=== PATIENT | male | born 1960 | race Hispanic/Latino ===

== ENCOUNTER 2024-10-17 21:41 | Emergency (ER) | payer SELFPAY ==
[~2024-10-17] VITALS: Ht 172.7 cm; Wt 90.7 kg
[2024-10-17 22:06] LABS: BASOPHILS # (AUTO) 0.04 K/uL (0.00-0.20); BASOPHILS % (AUTO) 0.7 % (0.0-5.0); EOSINOPHILS # (AUTO) 0.24 K/uL (0.00-0.70); EOSINOPHILS % (AUTO) 4.1 % (0.0-8.0); HEMATOCRIT 39.5 % (42-54); IMMATURE GRANULOCYTE ABSOLUTE 0.01 K/uL (0-1); LYMPHOCYTES # (AUTO) 1.8 K/uL (1.0-4.8); LYMPHOCYTES % (AUTO) 31.1 % (21.0-51.0); MEAN CORPUSCULAR HEMOGLOBIN 24.1 pg (27.0-33.0); MEAN CORPUSCULAR HGB CONC 31.6 g/dL (32.0-36.0); MEAN CORPUSCULAR VOLUME 76.3 fL (79-99); MONOCYTES # (AUTO) 0.5 K/uL (0.1-1.0); MONOCYTES % (AUTO) 9.3 % (3.0-13.0); NEUTROPHILS # (AUTO) 3.2 K/uL (1.8-7.7); NEUTROPHILS % (AUTO) 54.6 % (40.0-77.0); PLATELET COUNT (AUTO) 304 K/uL (130-400); RED BLOOD CELL COUNT(AUTO) 5.18 MIL/uL (4.50-6.20); RED CELL DISTRIBUTION WIDTH 14.6 % (11.0-15.5); WHITE BLOOD COUNT (AUTO) 5.8 K/uL (4.8-10.8)
[2024-10-17 22:16] LABS: CARBON DIOXIDE 25 mmol/L (21-32); CHLORIDE 106 mmol/L (101-111); CREATININE 0.9 mg/dL (0.5-1.3); GLOMERULAR FILTR. RATE CALC 95 mL/min (>90); GLUCOSE,RANDOM 112 mg/dL (70-105); POTASSIUM 3.5 mmol/L (3.5-5.1); SODIUM SERUM 141 mmol/L (136-145); UREA NITROGEN, BLOOD 12 mg/dL (7-18)
[2024-10-17 22:21] LABS: ACETAMINOPHEN 2 mcg/mL (10-29); ALANINE AMINOTRANSFERASE 14 U/L (12-78); ALBUMIN 3.6 g/dL (3.5-5.0); ALCOHOL, BLOOD 124 mg/dL (0-10); BILIRUBIN,TOTAL 0.3 mg/dL (0.2-1.0); CREATINE KINASE, TOTAL 156 U/L (21-232); TOTAL PROTEIN, SERUM 7.2 g/dL (6.0-8.3)
[2024-10-17] MEDS: ketOROlac 30MG VIAL (30MG/ML) IM ONE (22:36)
[2024-10-17 22:42] LABS: ASPARTATE AMINOTRANSFERASE 24 U/L (10-37)
[2024-10-17 22:43] LABS: SALICYLATE < 2.8 mg/dL (2.8-20.0)
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
--- NOTE | 2024-10-17 23:21 | HMCIMG ---
CT HEAD/BRAIN W/O CONTRAST HISTORY: Headache COMPARISON: None TECHNIQUE: Multiple sequential axial images of the head were obtained from the base of the skull through vertex. Patient was not given contrast through intravenous route. FINDINGS: The ventricles and extraventricular CSF spaces are dilated consistent with cerebral atrophy. Nonspecific white matter changes seen. There is no midline shift, mass effect or herniation. No acute intracranial bleed is seen. Mild bilateral ethmoid and maxillary sinusitis changes are seen with minimal mucoperiosteal thickening. IMPRESSION: 1. No acute intracranial bleed is seen. 2. Atrophy with white matter changes. CT was performed with one or more following dose reduction techniques: automated exposure control, adjustment of the mA and kv according to patient's size, or use of a iterative reconstruction technique.
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
[2024-10-18] VITALS: TEMP 98.2
[2024-10-18 06:18] LABS: APPEARANCE,URINE CLEAR (CLEAR); BILIRUBIN,URINE NEGATIVE (NEGATIVE); COLOR,URINE LIGHT-YELLOW (YELLOW); GLUCOSE, URINE (UA) NEGATIVE (NEGATIVE); KETONES,URINE NEGATIVE (NEGATIVE); LEUKOCYTE ESTERASE ,URINE NEGATIVE Leu/uL (NEGATIVE); NITRATE,URINE NEGATIVE (NEGATIVE); OCCULT BLOOD,URINE NEGATIVE (NEGATIVE); PROTEIN,URINE NEGATIVE (NEGATIVE); UROBILINOGEN,URINE 0.2 mg/dL (0.2-1.0)
[2024-10-18 06:19] LABS: ADD UA MICROSCOPIC NO
[2024-10-18 06:27] LABS: AMPHET/METH SCREEN,URINE NEGATIVE (NEGATIVE); BARBITURATE SCREEN, URINE NEGATIVE (NEGATIVE); BENZODIAZEPINES SCREEN,URINE NEGATIVE (NEGATIVE); CANNABINOID SCREEN,URINE NEGATIVE (NEGATIVE); COCAINE SCREEN,URINE NEGATIVE (NEGATIVE); OPIATE SCREEN,URINE NEGATIVE (NEGATIVE); PHENCYCLIDINE SCREEN,URINE NEGATIVE (NEGATIVE)
--- NOTE | 2024-10-18 06:32 | NUR ---
DRESSING CHANGE TO LEFT FLANK WOUND, 4 NONSTICK GAUZE USED
--- NOTE | 2024-10-18 06:38 | NUR ---
[facility] [place] [facility] CALLED, PENDING SCREENER TO ARRIVE TO EVALUATE PATIENT
--- NOTE | 2024-10-18 07:00 | NUR ---
REPORT RECEIVED FROM PEACE Marroquin RN
--- NOTE | 2024-10-18 08:00 | NUR ---
[facility] SCREENING: THE SCREENER JUST ARRIVED AND WAS PROVIDED PERTINENT INFORMATION TO START HER ASSESSMENT/EVALUATION. PT IN HALLWAY A1.
--- NOTE | 2024-10-18 08:10 | NUR ---
PT AWAKENED AND PROVIDED W/AN AM MEAL TRAY SCREENER IS ABOUT TO START HER ASSESSMENT/SCREENING. NO ACUTE DISTRESS NOTED NOR VERBALIZED AT THIS TIME.
--- NOTE | 2024-10-18 10:21 | NUR ---
[facility] SCREENING: PENDING FINAL ASSESSMENT FROM KEYSHA THE SCREENER SO ED MD MAY MAKE A FINAL DISPOSITION
[2024-10-18 11:27] VITALS: BP 146/75; PULSE 64; RESP 16; O2SAT 96
--- NOTE | 2024-10-18 11:34 | NUR ---
SALINE LOCK FROM L HAND REMOVED INTACT.
== END 2024-10-18 11:30 | disposition home or self-care (01) ==
LOC: EDH 21:41
DX: F10.959 Alcohol use, unspecified with alcohol-induced psychotic disorder, unspecified (principal); Y90.0 Blood alcohol level of less than 20 mg/100 ml
CPT/HCPCS: 99285; 70450; 82550; 80053; 80305; 85025; 81003; 36415 ×2; 96372; J1885; G0481